=== PATIENT | female | born 1945 | race Caucasian/White ===

== ENCOUNTER 2020-06-09 08:03 | Emergency (ER) | payer MEDICARE, OTHER ==
[~2020-06-09 08:03] MED LIST: PREDNISONE 20MG20 MG PO; VENTOLIN HFA18 GM PO
[2020-06-09 09:12] LABS: BASOPHIL 0.8 % (0-2); EOSINOPHIL 4.4 % (0-7); HCT 37.1 % (37.0-47.0); HGB 12.3 g/dl (12.5-16.0); LYMPHOCYTE 18.1 % (15-48); MCH 33.1 pg (25.0-31.0); MCHC 33.2 g/dL (32.0-36.0); MCV 99.7 fL (78.0-100.0); MONOCYTE 8.6 % (0-12); MPV 10.5 fL (6.0-9.5); NEUTROPHIL 67.8 % (41-80); NRBC 0; PLT 193 K/uL (150-400); RBC 3.72 M/uL (4.20-5.40); WBC 7.6 K/uL (4.0-10.5)
[2020-06-09 09:39] LABS: ALBUMIN 3.4 g/dL (3.4-5.0); BILIRUBIN - TOTAL 0.5 mg/dL (0.2-1.0); CREATININE 0.79 mg/dL (0.51-0.95); GLOBULIN (CALCULATION) 2.9 g/dL; POTASSIUM 3.3 mmol/L (3.5-5.1); TOTAL PROTEIN 6.3 g/dL (6.4-8.2)
[2020-06-09] MEDS ORDERED: PERCOCET 5-3251 EACH PO (11:32)
[2020-06-09] MEDS ORDERED: MEDROL 4MG DOSEP4 MG PO (11:32)
== END 2020-06-09 13:16 | disposition home or self-care (01) ==
LOC: FER 08:03
PROVIDERS: Emergency Medicine
DX: R07.89 Other chest pain (principal); M54.14 Radiculopathy, thoracic region; R06.02 Shortness of breath; F17.210 Nicotine dependence, cigarettes, uncomplicated
CPT/HCPCS: 36415; 71275; 80053; 82550; 82728; 83615; 83690; 84484; 85025; 85379; 93005; J1170; J2405; J7030; Q9967

== ENCOUNTER 2020-06-15 11:12 | Emergency (ER) | payer MEDICARE, OTHER ==
[~2020-06-15 11:12] MED LIST changes: +MEDROL 4MG DOSEP4 MG PO; +PERCOCET 5-3251 EACH PO
[2020-06-15] MEDS ORDERED: PREDNISONE 20MG20 MG PO (13:46)
== END 2020-06-15 14:30 | disposition home or self-care (01) ==
LOC: FER 11:12
DX: S20.222A Contusion of left back wall of thorax, initial encounter (principal); S70.01XA Contusion of right hip, initial encounter; Z86.73 Personal history of transient ischemic attack (TIA), and cerebral infarction without residual deficits; Z79.01 Long term (current) use of anticoagulants; W01.0XXA Fall on same level from slipping, tripping and stumbling without subsequent striking against object, initial encounter; Y92.009 Unspecified place in unspecified non-institutional (private) residence as the place of occurrence of the external cause
CPT/HCPCS: 71250; 72192; J1170; J2405

== ENCOUNTER 2020-06-18 05:52 | Day surgery (SDCO) | payer MEDICARE, OTHER ==
[2020-06-18 06:43] LABS: BASOPHIL 0.6 % (0-2); EOSINOPHIL 2.5 % (0-7); HCT 35.8 % (37.0-47.0); HGB 11.8 g/dl (12.5-16.0); LYMPHOCYTE 14.6 % (15-48); MCH 32.6 pg (25.0-31.0); MCV 98.9 fL (78.0-100.0); MONOCYTE 11.6 % (0-12); MPV 10.9 fL (6.0-9.5); NEUTROPHIL 70.3 % (41-80); NRBC 0; PLT 186 K/uL (150-400); RBC 3.62 M/uL (4.20-5.40); RDW 13.3 % (11.5-14.0); WBC 11.1 K/uL (4.0-10.5)
[2020-06-18 06:52] LABS: BILIRUBIN NEGATIVE (NEGATIVE); BLOOD NEGATIVE Ery/uL (NEGATIVE); CLARITY CLEAR (CLEAR); COLOR YELLOW (YELLOW); GLUCOSE (U) NORMAL (NORMAL); LEUKOCYTES NEGATIVE Leu/uL (NEGATIVE); NITRITE NEGATIVE (NEGATIVE); PROTEIN NEGATIVE (NEGATIVE); SPECIFIC GRAVITY 1.015 (1.001-1.030); UROBILINOGEN 0.2 mg/dL (0.2-1.0)
[2020-06-18 06:53] LABS: ALBUMIN 3.2 g/dL (3.4-5.0); BILIRUBIN - TOTAL 0.4 mg/dL (0.2-1.0); BUN/CREAT RATIO (CALC) 13.9 RATIO; CREATININE 1.08 mg/dL (0.51-0.95); GLOBULIN (CALCULATION) 3.1 g/dL; POTASSIUM 3.7 mmol/L (3.5-5.1); TOTAL PROTEIN 6.3 g/dL (6.4-8.2)
[2020-06-18 07:03] LABS: LACTIC ACID 1.2 mmol/L (0.4-1.9)
[2020-06-18 12:21] LABS: CORONAVIRUS 2019 SARS-COV-2 NEGATIVE (NEGATIVE); INFLUENZA A NAA NEGATIVE (NEGATIVE)
[2020-06-18] MEDS ORDERED: LIPITOR40 MG PO (13:45)
[2020-06-18] MEDS ORDERED: ASPIRIN EC81 MG PO (13:45)
[2020-06-18] MEDS ORDERED: ZYRTEC10 M3 PO (13:46)
[2020-06-18] MEDS ORDERED: ESCITALOPRAM OX20 MG PO (13:46)
[2020-06-18] MEDS ORDERED: CALCIUM 600 MG1 EACH PO (13:47)
[2020-06-18] MEDS ORDERED: SINGULAIR10 MG PO (13:47)
[2020-06-18] MEDS ORDERED: VITAMIN D3125 MCG PO (13:47)
[2020-06-18] MEDS ORDERED: NORVASC5 MG PO (13:48)
[2020-06-18] MEDS ORDERED: CULTURELLE1 EACH PO (13:48)
[2020-06-18] MEDS ORDERED: CALCIUM PO (13:50)
[2020-06-19 06:14] LABS: BASOPHIL 0.1 % (0-2); EOSINOPHIL 0 % (0-7); HCT 33.9 % (37.0-47.0); MCH 32.4 pg (25.0-31.0); MCHC 32.4 g/dL (32.0-36.0); MONOCYTE 7.8 % (0-12); MPV 10.3 fL (6.0-9.5); NEUTROPHIL 83.4 % (41-80); NRBC 0; PLT 173 K/uL (150-400); RBC 3.39 M/uL (4.20-5.40); RDW 13.4 % (11.5-14.0); WBC 8.3 K/uL (4.0-10.5)
[2020-06-19 06:33] LABS: BUN/CREAT RATIO (CALC) 19.8 RATIO; CREATININE 0.81 mg/dL (0.51-0.95); MAGNESIUM 1.7 mg/dL (1.8-2.4); POTASSIUM 4.3 mmol/L (3.5-5.1)
--- NOTE | 2020-06-20 13:43 | NUR ---
06/20/20 Ms. Willoughby lives with her spouse. She has 02 for night use, rw, cane, s. chair, rails around the commode and a wc. A referral was made to [facility] per patient choice; affliation explained. - Report given to MS ELIUD Rodriguez
[2020-06-20] MEDS ORDERED: BACLOFEN 10MG T10 MG PO (16:18)
[2020-06-20] MEDS ORDERED: PERCOCET 5-3251 EACH PO (16:18)
== END 2020-06-20 18:15 | disposition home or self-care (01) ==
LOC: FER 05:52 → FMS 10:36
PROVIDERS: Emergency Medicine; ADMIT Internal Medicine
DX: S22.089A Unspecified fracture of T11-T12 vertebra, initial encounter for closed fracture (principal); S22.069A Unspecified fracture of T7-T8 vertebra, initial encounter for closed fracture; K56.41 Fecal impaction; I69.351 Hemiplegia and hemiparesis following cerebral infarction affecting right dominant side; I10 Essential (primary) hypertension; J44.9 Chronic obstructive pulmonary disease, unspecified; E78.5 Hyperlipidemia, unspecified; E78.00 Pure hypercholesterolemia, unspecified; W19.XXXA Unspecified fall, initial encounter; Z20.822 Contact with and (suspected) exposure to COVID-19; Z79.82 Long term (current) use of aspirin; Z79.899 Other long term (current) drug therapy; Z88.2 Allergy status to sulfonamides; Z88.5 Allergy status to narcotic agent; Z87.891 Personal history of nicotine dependence; Z99.81 Dependence on supplemental oxygen
CPT/HCPCS: 36415; 72128; 72131; 80048; 80053; 81003; 83605; 83690; 83735; 85025; 87088; 94010; 97116; 97162; 97166; 97530-GP; 97535; G0378; J0780; J1170; J1650; J1885; J2270; J2405; J2920; J3475; J7030; U0002

== ENCOUNTER 2020-09-30 14:24 | Emergency (ER) | payer MEDICARE, OTHER ==
[~2020-09-30 14:24] MED LIST changes: +ASPIRIN EC81 MG PO; +BACLOFEN 10MG T10 MG PO; +CALCIUM 600 MG1 EACH PO; +CALCIUM PO; +CULTURELLE1 EACH PO; +ESCITALOPRAM OX20 MG PO; +LIPITOR40 MG PO; +NORVASC5 MG PO; +SINGULAIR10 MG PO; +VITAMIN D3125 MCG PO; +ZYRTEC10 M3 PO
[2020-09-30 14:49] LABS: BASOPHIL 0.6 % (0-2); EOSINOPHIL 1.7 % (0-7); HGB 11.8 g/dl (12.5-16.0); LYMPHOCYTE 26.3 % (15-48); MCH 33.5 pg (25.0-31.0); MCHC 33.7 g/dL (32.0-36.0); MCV 99.4 fL (78.0-100.0); MONOCYTE 5.4 % (0-12); MPV 10.4 fL (6.0-9.5); NEUTROPHIL 65.9 % (41-80); NRBC 0; PLT 197 K/uL (150-400); RBC 3.52 M/uL (4.20-5.40); RDW 12.9 % (11.5-14.0); WBC 6.9 K/uL (4.0-10.5)
[2020-09-30 15:04] LABS: INR 1.06 (0.9-1.2); PROTHROMBIN TIME 13.1 SECONDS (11.4-13.6); PTT 29.1 SECONDS (22.2-34.7)
[2020-09-30 15:14] LABS: PRO-BNP 208 pg/mL (<450)
[2020-09-30 15:17] LABS: ALBUMIN 3.4 g/dL (3.4-5.0); BILIRUBIN - TOTAL 0.4 mg/dL (0.2-1.0); BUN/CREAT RATIO (CALC) 17.7 RATIO; CREATININE 0.79 mg/dL (0.51-0.95); IRON % SATURATION 25.9 %SAT (20-50); MAGNESIUM 1.7 mg/dL (1.8-2.4); POTASSIUM 3.5 mmol/L (3.5-5.1); TOTAL PROTEIN 6.4 g/dL (6.4-8.2)
[2020-09-30] MEDS ORDERED: AMOXICILLIN875 MG PO (17:44)
[2020-09-30] MEDS ORDERED: ANTIVERT25 MG PO (17:44)
== END 2020-09-30 18:20 | disposition home or self-care (01) ==
LOC: FER 14:24
PROVIDERS: Emergency Medicine
DX: H70.93 Unspecified mastoiditis, bilateral (principal); I69.90 Unspecified sequelae of unspecified cerebrovascular disease; Z88.5 Allergy status to narcotic agent
CPT/HCPCS: 36415; 70450; 70551; 71045; 80053; 83540; 83550; 83605; 83735; 83880; 84145; 84484; 85025; 85610; 85730; 93005; J0696

== ENCOUNTER 2021-03-29 11:52 | Emergency (ER) | payer MEDICARE, OTHER ==
[~2021-03-29 11:52] MED LIST changes: +AMOXICILLIN875 MG PO; +ANTIVERT25 MG PO
[2021-03-29 12:42] LABS: BASOPHIL 1.1 % (0-2); BILIRUBIN NEGATIVE (NEGATIVE); BLOOD NEGATIVE Ery/uL (NEGATIVE); CLARITY CLEAR (CLEAR); COLOR YELLOW (YELLOW); EOSINOPHIL 4.8 % (0-7); GLUCOSE (U) NORMAL (NORMAL); HCT 40.6 % (37.0-47.0); LEUKOCYTES TRACE Leu/uL (NEGATIVE); LYMPHOCYTE 30.7 % (15-48); MCH 32.5 pg (25.0-31.0); MCV 101.5 fL (78.0-100.0); MONOCYTE 7.7 % (0-12); MPV 10.4 fL (6.0-9.5); NEUTROPHIL 55.4 % (41-80); NITRITE POSITIVE (NEGATIVE); NRBC 0; PLT 217 K/uL (150-400); PROTEIN NEGATIVE (NEGATIVE); RDW 12.9 % (11.5-14.0); SPECIFIC GRAVITY 1.015 (1.001-1.030); UROBILINOGEN 0.2 mg/dL (0.2-1.0)
[2021-03-29 12:49] LABS: BACTERIA 4+
[2021-03-29 13:01] LABS: ALBUMIN 3.6 g/dL (3.4-5.0); BILIRUBIN - TOTAL 0.5 mg/dL (0.2-1.0); BUN/CREAT RATIO (CALC) 26.2 RATIO; CREATININE 0.61 mg/dL (0.51-0.95); GLOBULIN (CALCULATION) 3.2 g/dL; POTASSIUM 3.6 mmol/L (3.5-5.1); TOTAL PROTEIN 6.8 g/dL (6.4-8.2)
[2021-03-29] MEDS ORDERED: AUGMENTIN 875-1 EACH PO (18:30)
[2021-03-29] MEDS ORDERED: ONDANSETRON ODT4 MG PO (18:30)
[2021-03-29] MEDS ORDERED: ANTIVERT25 MG PO (18:30)
== END 2021-03-29 19:58 | disposition home or self-care (01) ==
LOC: FER 11:52
PROVIDERS: Emergency Medicine
DX: R42 Dizziness and giddiness (principal); N39.0 Urinary tract infection, site not specified; H66.91 Otitis media, unspecified, right ear; I69.951 Hemiplegia and hemiparesis following unspecified cerebrovascular disease affecting right dominant side; Z88.5 Allergy status to narcotic agent
CPT/HCPCS: 36415; 70450; 70486; 70551; 80053; 81001; 84484; 85025; 93005; J0696; J2405; J7030

== ENCOUNTER 2021-04-14 11:58 | Inpatient (IN) | payer MEDICARE, OTHER ==
[~2021-04-14] VITALS: Ht 160 cm; Wt 65.5 kg
[~2021-04-14 11:58] MED LIST changes: +AUGMENTIN 875-1 EACH PO; +ONDANSETRON ODT4 MG PO
[2021-04-14 12:58] LABS: BASOPHIL 0.7 % (0-2); EOSINOPHIL 3.2 % (0-7); HCT 37.9 % (37.0-47.0); HGB 12.2 g/dl (12.5-16.0); MCH 32.4 pg (25.0-31.0); MCHC 32.2 g/dL (32.0-36.0); MCV 100.8 fL (78.0-100.0); MONOCYTE 6.6 % (0-12); MPV 10.2 fL (6.0-9.5); NEUTROPHIL 76.9 % (41-80); NRBC 0; PLT 185 K/uL (150-400); RBC 3.76 M/uL (4.20-5.40); RDW 12.9 % (11.5-14.0); WBC 8.5 K/uL (4.0-10.5)
[2021-04-14 13:09] LABS: INR 1.04 (0.9-1.2); PTT 29.8 SECONDS (24.4-34.7)
[2021-04-14 13:18] LABS: ALBUMIN 3.8 g/dL (3.4-5.0); BILIRUBIN - TOTAL 0.4 mg/dL (0.2-1.0); BUN/CREAT RATIO (CALC) 23.3 RATIO; CREATININE 0.6 mg/dL (0.51-0.95); GLOBULIN (CALCULATION) 2.7 g/dL; POTASSIUM 3.9 mmol/L (3.5-5.1); TOTAL PROTEIN 6.5 g/dL (6.4-8.2)
[2021-04-14 14:09] LABS: CORONAVIRUS 2019 SARS-COV-2 NEGATIVE (NEGATIVE); INFLUENZA A NAA NEGATIVE (NEGATIVE)
[2021-04-14] MEDS ORDERED: VENTOLIN HFA IN18 GM INH (14:53)
[2021-04-14] MEDS ORDERED: COLESTID1 GM PO (14:54)
[2021-04-14] MEDS ORDERED: IPRAT-ALBUT 0.5-3 ML INH (14:55)
[2021-04-14 15:13] LABS: BILIRUBIN NEGATIVE (NEGATIVE); BLOOD NEGATIVE Ery/uL (NEGATIVE); CLARITY CLEAR (CLEAR); COLOR YELLOW (YELLOW); GLUCOSE (U) NORMAL (NORMAL); LEUKOCYTES NEGATIVE Leu/uL (NEGATIVE); NITRITE NEGATIVE (NEGATIVE); PROTEIN NEGATIVE (NEGATIVE); SPECIFIC GRAVITY 1.025 (1.001-1.030); UROBILINOGEN 0.2 mg/dL (0.2-1.0)
--- NOTE | 2021-04-15 17:11 | NUR ---
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 She has a wc, s. chair, rails in the bathroom, rw, cane, and 02 at 2 L for night time use from [employer]. Will assist family with dc planning following Therapy's recommendations.
[2021-04-16 07:09] LABS: BASOPHIL 0.4 % (0-2); EOSINOPHIL 0.3 % (0-7); HCT 29.8 % (37.0-47.0); HGB 9.3 g/dl (12.5-16.0); MCH 32.4 pg (25.0-31.0); MCHC 31.2 g/dL (32.0-36.0); MCV 103.8 fL (78.0-100.0); MONOCYTE 9.2 % (0-12); MPV 10.8 fL (6.0-9.5); NEUTROPHIL 77.7 % (41-80); NRBC 0; PLT 139 K/uL (150-400); RBC 2.87 M/uL (4.20-5.40); RDW 12.8 % (11.5-14.0); WBC 9.7 K/uL (4.0-10.5)
[2021-04-16 07:22] LABS: BUN/CREAT RATIO (CALC) 25.5 RATIO; CREATININE 0.55 mg/dL (0.51-0.95); POTASSIUM 4.2 mmol/L (3.5-5.1)
--- NOTE | 2021-04-16 13:15 | NUR ---
MET WITH PT AND SPOUSE. THEY HAVE CHOSEN [facility] FOR INPT REHAB. [facility] SECOND. THEY DID ASK THEY I CHECK WITH THE ACUTE REHAB AT [facility]. TC TO JOSE AT [facility]. HE ADVISED THAT THE REHAB IS 2 HRS 5 DAYS A WEEK. ADVISED PT. SHE STATED THAT SHE COULD NOT DO THREE HOURS A DAY AND WANTS TO STAY WITH [facility]. TC TO FE AT [facility]. SHE ADVISED THEY HAVE ONE BED AND TO SEND HER THE REFERRAL. FAXED REFERRAL TO [facility].
--- NOTE | 2021-04-16 15:34 | NUR ---
TC FROM [facility] WITH MARBIN SOLANO. THEY DENIED PT DUE TO HER REQURING MAX ASSIST AND THEY DO NOT HAVE A BED FOR THAT TYPE OF CARE. SPOKE WITH FAMILY, ADVISED BY PT AND SPOUSE TO CONTACT [facility]. TC TO [facility] AND HE ADVISED TO SEND REFERRAL. FAXED REFERRAL TO [phone].
--- NOTE | 2021-04-16 15:35 | NUR ---
TC FROM DAUGHTER, NEGRITO MEDELLIN. SHE WANTED A REFERRAL SENT TO [facility] ACUTE [facility]. ADVISED HER THAT HER PARENTS DID NOT WISH TO GO TO THE REHAB. SHE WILL BE COMING TO THE HOSPITAL TO MEET WITH ME AND HER PARENTS REGARDING PLACEMENT.
[2021-04-17 08:17] LABS: IRON % SATURATION 9.5 %SAT (20-50)
[2021-04-17 08:34] LABS: BASOPHIL 0.5 % (0-2); EOSINOPHIL 5.1 % (0-7); HCT 24.8 % (37.0-47.0); HGB 7.8 g/dl (12.5-16.0); LYMPHOCYTE 13.8 % (15-48); MCH 32.5 pg (25.0-31.0); MCHC 31.5 g/dL (32.0-36.0); MCV 103.3 fL (78.0-100.0); MONOCYTE 9.5 % (0-12); MPV 11.4 fL (6.0-9.5); NEUTROPHIL 70.7 % (41-80); NRBC 0; PLT 115 K/uL (150-400); RDW 12.7 % (11.5-14.0); WBC 7.6 K/uL (4.0-10.5)
[2021-04-17 08:49] LABS: FOLIC ACID (SERUM) 8.2 ng/mL (8.6-58.9)
--- NOTE | 2021-04-17 10:34 | NUR ---
MIMI FROM [facility] WITH [facility]. HE ADVISED THAT PT HAS BEEN ACCEPTED. REPORT NUMBER IS [id number] ASK FOR TRANSITIONAL UNIT NURSING STATION. FAX # FOR D/C SUMMARY IS [phone]. ADVISED PT THAT SHE HAS BEEN ACCEPTED WHEN SHE IS MEDICALLY STABLE.
--- NOTE | 2021-04-17 10:38 | NUR ---
ADVISED DR. RAMIREZ AND NURSE, BHAVANI OF PT ACCEPTANCE AT [facility]. ALSO, SPOKE WITH PT SPOUSE HE HAS ALREADY SPOKEN WITH [facility] AT [facility].
--- NOTE | 2021-04-17 12:34 | NUR ---
PER DR. RAIMREZ HE IS GOING TO [facility]. AND HOPEFULLY SENT TO [facility] ON WEDNESDAY. TC TO [facility] AT [facility] AND ADVISED.
[2021-04-18 06:01] LABS: BASOPHIL 0.4 % (0-2); EOSINOPHIL 3.3 % (0-7); HGB 7.9 g/dl (12.5-16.0); LYMPHOCYTE 15.2 % (15-48); MCH 31.9 pg (25.0-31.0); MCHC 31.6 g/dL (32.0-36.0); MCV 100.8 fL (78.0-100.0); MONOCYTE 9.7 % (0-12); MPV 10.9 fL (6.0-9.5); NEUTROPHIL 70.9 % (41-80); NRBC 0; PLT 152 K/uL (150-400); RBC 2.48 M/uL (4.20-5.40); RDW 12.6 % (11.5-14.0); WBC 8.1 K/uL (4.0-10.5)
[2021-04-18 10:21] LABS: CREATININE 0.63 mg/dL (0.51-0.95); POTASSIUM 3.4 mmol/L (3.5-5.1)
--- NOTE | 2021-04-18 11:50 | NUR ---
PT. WILL NOT D/C THIS DATE. TC TO [facility] AT [facility]. ADVISED THAT PT IS GETTING BLOOD THIS DATE AND ANTICIPATED D/C WILL BE WEDNESDAY. [facility] ADVISED THEY WOULD ACCCEPT PT ON WEDNESDAY. CALL THE PREVIOUS REPORT AND FAX NUMBERS.
[2021-04-19 06:17] LABS: BASOPHIL 0.7 % (0-2); EOSINOPHIL 5.9 % (0-7); HCT 27.1 % (37.0-47.0); HGB 8.6 g/dl (12.5-16.0); LYMPHOCYTE 17.4 % (15-48); MCH 31.4 pg (25.0-31.0); MCHC 31.7 g/dL (32.0-36.0); MCV 98.9 fL (78.0-100.0); MONOCYTE 10.3 % (0-12); MPV 10.4 fL (6.0-9.5); NEUTROPHIL 65.6 % (41-80); NRBC 0; PLT 149 K/uL (150-400); RBC 2.74 M/uL (4.20-5.40); RDW 14.2 % (11.5-14.0); WBC 6.9 K/uL (4.0-10.5)
[2021-04-19 06:39] LABS: BUN/CREAT RATIO (CALC) 24.6 RATIO; CREATININE 0.61 mg/dL (0.51-0.95); POTASSIUM 3.9 mmol/L (3.5-5.1)
[2021-04-19] MEDS ORDERED: FOLIC ACID1 MG PO (08:51)
[2021-04-19] MEDS ORDERED: STIMULANT LAXA1 EACH PO (08:51)
[2021-04-19] MEDS ORDERED: ACETAMINOPHEN325 MG PO (08:51)
[2021-04-19] MEDS ORDERED: PROTONIX 40MG T40 MG PO (08:51)
[2021-04-19] MEDS ORDERED: MIRALAX17 GM PO (08:51)
[2021-04-19] MEDS ORDERED: CHILDREN'S ASPI81 MG PO (08:51)
[2021-04-19] MEDS ORDERED: OXYCODONE-ACET1 EAC1 PO (08:51)
[2021-04-19] MEDS ORDERED: VENTOLIN HFA IN18 GM INH (08:51)
[2021-04-19] MEDS ORDERED: PANTOPRAZOLE SO40 MG PO (08:51)
[2021-04-19] MEDS ORDERED: UROCIT-K10 MEQ PO (08:52)
[2021-04-19] MEDS ORDERED: LASIX20 MG PO (08:52)
== END 2021-04-19 17:18 | DRG 480 ==
LOC: FER 11:58 → FTCU 13:31 → FMS 04-15 18:26
PROVIDERS: Emergency Medicine; Internal Medicine; Orthopaedic Surgery; ADMIT Allergy & Immunology Allergy
PROC: 0QS604Z Reposition Right Upper Femur with Internal Fixation Device, Open Approach (ICD-10-PCS; 2021-04-15)
PROC: 30233N1 Transfusion of Nonautologous Red Blood Cells into Peripheral Vein, Percutaneous Approach (ICD-10-PCS; principal; 2021-04-18)
DX: S72.141A Displaced intertrochanteric fracture of right femur, initial encounter for closed fracture (principal); I50.33 Acute on chronic diastolic (congestive) heart failure; I69.351 Hemiplegia and hemiparesis following cerebral infarction affecting right dominant side; D62 Acute posthemorrhagic anemia; Z20.822 Contact with and (suspected) exposure to COVID-19; I11.0 Hypertensive heart disease with heart failure; J44.9 Chronic obstructive pulmonary disease, unspecified; F03.90 Unspecified dementia, unspecified severity, without behavioral disturbance, psychotic disturbance, mood disturbance, and anxiety; E87.6 Hypokalemia; T50.1X5A Adverse effect of loop [high-ceiling] diuretics, initial encounter; R09.02 Hypoxemia; Z96.651 Presence of right artificial knee joint; Z87.440 Personal history of urinary (tract) infections; Z88.5 Allergy status to narcotic agent; Z98.890 Other specified postprocedural states; Z90.49 Acquired absence of other specified parts of digestive tract; Z79.82 Long term (current) use of aspirin; Z79.899 Other long term (current) drug therapy; W01.0XXA Fall on same level from slipping, tripping and stumbling without subsequent striking against object, initial encounter; Z99.81 Dependence on supplemental oxygen
CPT/HCPCS: 36415; 36430; 71045; 73501; 73502; 73552; 76000; 80048; 80053; 81003; 82607; 82728; 82746; 83540; 83550; 85025; 85610; 85730; 86850; 86870; 86880; 86900; 86901; 86906; 86922; 93005; 94010; 94640; 96374; 96375; 97162; 97166; 97530-GP; 97535; C1713; J0697; J0780; J1170; J1940; J2250; J2270; J2405; J2916; J7120; P9016; U0002